=== PATIENT | male | born 1960 | race Caucasian/White ===

== ENCOUNTER 2021-01-04 07:05 | Emergency (ER) | payer BC, OTHER ==
[~2021-01-04] VITALS: Ht 180.3 cm; Wt 100.4 kg
[~2021-01-04 07:05] MED LIST: MULT-658 PO; OMEG-76 PO; ROSU5TAB PO
[2021-01-04 07:11] VITALS: BP 122/74
--- NOTE | 2021-01-04 07:45 | NUR ---
ERMD IN TO EVAL PT AT THIS TIME, PT DENIES NEEDS AT THIS TIME, CALL OUT TO OPTHAMOLOGY
== END 2021-01-04 08:23 | disposition home or self-care (01) ==
LOC: ED 08:16
DX: H53.2 Diplopia (principal); M79.89 Other specified soft tissue disorders; H57.11 Ocular pain, right eye
CPT/HCPCS: 99282